=== PATIENT | male | born 1945 | race Caucasian/White ===

== ENCOUNTER → 2017-12-25 | Outpatient (REF) | payer BC ==
[~2017-12-25] MED LIST: ARTO15 OP; BIS10S PR; HCTZ25 PO; IRO150 PO; LISI-355 PO; PER PO; SEN100 PO; SODI44SP17 NS; WAR5 PO
== END ==
LOC: ZZPBJ 21:22
PROVIDERS: ATTEND Orthopaedic Surgery
DX: M70.31 Other bursitis of elbow, right elbow (principal)
CPT/HCPCS: 87071; 87205